=== PATIENT | male | born 1950 | race Caucasian/White ===

== ENCOUNTER 2023-02-27 10:18 | Oncology outpatient (recurring) (ONCR) | payer MEDICARE, OTHER, SELFPAY ==
--- NOTE | 2023-02-19 15:04 | N.ONRAD NP_ITS ---
Radiation Oncology Consultation Patient Name: Kaveh Krishna Date of : 1950 Date of Service: 02/19/2023 Attending Physician: Navarro Grewal M.D. Kaveh Krishna was seen in consultation this morning at the request of Jose Rivera M.D. for evaluation regarding cranial radiotherapy in the management of metastatic lung cancer. He was diagnosed in 2021 with a non-small cell lung cancer. 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 PET imaging ordered in September 2022 demonstrated a 3.2 cm mass in the right upper-lobe (SUV 14.4) and bilateral hilar lymphadenopathy (SUV 6.2). A biopsy was consistent with recurrent squamous cell carcinoma. He was evaluated at the [facility]'s Emergency Department on January 28, [address] of the head reported decreased attenuation in the left frontal lobe. An MRI of the brain (independently reviewed in [facility]) requested on February 14, 2023 identified a 1.1 cm enhancing lesion in the postero-superior left frontal lobe with surrounding vasogenic edema. The patient was referred for cranial radiotherapy. I reviewed the National [employer] Cancer [employer] Guidelines for patients with limited brain metastases recommending consideration for surgical intervention, stereotactic radiosurgery, hippocampal avoidance whole brain radiotherapy, or whole brain radiotherapy. In consideration of the adverse effects of whole brain radiotherapy, I would recommend SRS. The potential toxicities of SRS were canvassed. The patient has verbalized understanding and would like to proceed as recommended. Signed by: Navarro Grewal 02/19/2023 3:03:58 PM
--- NOTE | 2023-02-25 | CT_ITS ---
Radiation Therapy Planning CT images; total exam DLP: 1396.39 mGy-cm MTDD
--- NOTE | 2023-02-27 11:14 | N.ONRD TS_ITS ---
Radiation OncologyTreatment Summary Patient Name: Kaveh Krishna Date of : 1950 Date of Service: 02/27/2023 Attending Physician: Navarro Grewal M.D. 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 He was diagnosed in 2021 with a non-small cell lung cancer. 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 PET imaging ordered in September 2022 demonstrated a 3.2 cm mass in the right upper-lobe (SUV 14.4) and bilateral hilar lymphadenopathy (SUV 6.2). A biopsy was consistent with recurrent squamous cell carcinoma. He was evaluated at the [facility]'s Emergency Department on January 28, [address] of the head reported decreased attenuation in the left frontal lobe. An MRI of the brain requested on February 14, 2023 identified a 1.1 cm enhancing lesion in the postero-superior left frontal lobe with surrounding vasogenic edema. SRS was performed on February 27, 2023. A prescribed dose of 24 Gy was delivered to the left postero-superior frontal lobe lesion in one fraction. The lesion was treated utilizing and intensity modulated radiotherapy plan with a step and shoot treatment technique. The plan required five coplanar webber and three non-coplanar ports. The coplanar webber were designed with gantry angles of 60???, 80???, 100???, 120??? 140??? and a collimator rotation of 0???. The minimum field size was 3.5 cm x 3 cm to a maximum of 4.6 cm x 3 cm. The planned SSD measured between 95.7 cm to 97.4 cm. The delivered monitor units for the referenced gantry angles were 707 MU, 643 MU, 609 MU, 633 MU, and 233 MU. An additional three non-coplanar ports were arranged with gantry angles of 50???, 90??? and 130???, respectively with a collimator rotation of 0???. The non-coplanar portal webber measured a minimum of 4 cm x 3 cm to a maximum of 4.8 cm x 3 cm. The SSD measurements were 96.8 cm to 97.5 cm. The non-coplanar ports administered 708 MU, 810 MU, and 558 MU, respectively. All treatments were performed with the [employer] linear accelerator and an isocentric technique. The dose was calculated by Anisotropic Analytic Algorithm. Low energy photons were prescribed with the plan normalized to deliver 100% of the prescription dose to 95% of the planning target volume. Signed by: Navarro Grewla 02/27/2023 11:13:46 AM
--- NOTE | 2023-02-27 11:25 | ONCRAD TMN_ITS ---
SRS Treatment Management Note Patient Name: Kaveh Krishna Date of : 1950 Date of Service: 02/27/2023 Attending Physician: Navarro Grewal M.D. Kaveh Krishna is a 72 year-old white male recently identified to have a solitary brain metastasis. He was diagnosed in 2021 with a non-small cell lung cancer. 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 PET imaging ordered in September 2022 demonstrated a 3.2 cm mass in the right upper-lobe (SUV 14.4) and bilateral hilar lymphadenopathy (SUV 6.2). A biopsy was consistent with recurrent squamous cell carcinoma. He was evaluated at the [facility]'s Emergency Department on January 28, [address] of the head reported decreased attenuation in the left frontal lobe. An MRI of the brain requested on February 14, 2023 identified a 1.1 cm enhancing lesion in the postero-superior left frontal lobe with surrounding vasogenic edema. The patient has received 24 Gy of a prescribed 24 Love with an intensity modulated radiotherapy plan delivered utilizing stereotactic radiosurgery to the left frontal lobe metastasis. Upon review of systems, he did not report new neurological complaints. On physical examination, the patient weighed 193 lbs. His temperature was 96.7 ???F and the blood pressure was 140/85 mmHg. His pulse was 66 bpm and the respiratory rate was 18. SRS was completed today. He will return for routine post-SRS follow-up as scheduled. Signed by: Navarro Grewal 02/27/2023 11:24:23 AM
== END 2023-02-27 23:59 | disposition home or self-care (01) ==
PROVIDERS: Visit Provider Radiology Radiation Oncology
DX: Z51.0 Encounter for antineoplastic radiation therapy (principal); C34.12 Malignant neoplasm of upper lobe, left bronchus or lung; Z90.2 Acquired absence of lung [part of]; C78.01 Secondary malignant neoplasm of right lung; C77.8 Secondary and unspecified malignant neoplasm of lymph nodes of multiple regions; C79.31 Secondary malignant neoplasm of brain
CPT/HCPCS: 77300; 77301; 77334; 77336; 77338; 77372; 77470; 99024; 99205

== ENCOUNTER 2023-04-05 09:11 | Oncology outpatient (recurring) (ONCR) | payer MEDICARE, OTHER, SELFPAY ==
--- NOTE | 2023-04-05 09:32 | ONCRAD EPV_ITS ---
Radiation Oncology Follow-Up Note Patient Name: Kaveh Krishna Date of : 1950 Date of Service: 04/05/2023 Attending Physician: Navarro Grewal M.D. Kaveh Krishna returned to my office this morning for a routinely scheduled follow-up appointment. He completed stereotactic radiosurgery in February for the management of metastatic lung cancer. He was diagnosed in 2021 with a non-small cell lung cancer. 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 PET imaging ordered in September 2022 demonstrated a 3.2 cm mass in the right upper-lobe (SUV 14.4) and bilateral hilar lymphadenopathy (SUV 6.2). A biopsy was consistent with recurrent squamous cell carcinoma. He was evaluated at the [facility]'s Emergency Department on January 28, [address] of the head reported decreased attenuation in the left frontal lobe. An MRI of the brain requested on February 14, 2023 identified a 1.1 cm enhancing lesion in the postero-superior left frontal lobe with surrounding vasogenic edema. SRS was performed on February 27, 2023. A prescribed dose of 24 Gy was delivered to the left postero-superior frontal lobe lesion in one fraction. On review of systems,. On physical examination, the patient weighed 192 pounds. The temperature was 98.2???F and his blood pressure was 119/63 mmHg. The pulse was 87 bpm and his respiratory rate was 18 breaths per minute. Neurological exam did not reveal any focal abnormalities. In summary, the Mr. Krishna returned for a routine post-SRS follow-up. He has been prescribed salvage chemotherapy and will continue follow-up with his medical oncologist in [place], [place]. Signed by: Dr. Navarro Grewal 04/05/2023 9:31:04 AM
== END 2023-04-12 23:59 | disposition home or self-care (01) ==
LOC: ONCMED 09:12
PROVIDERS: PCP Nurse Practitioner Family; Visit Provider Radiology Radiation Oncology
DX: C34.12 Malignant neoplasm of upper lobe, left bronchus or lung (principal); Z90.2 Acquired absence of lung [part of]; C77.8 Secondary and unspecified malignant neoplasm of lymph nodes of multiple regions; C79.31 Secondary malignant neoplasm of brain; Z92.3 Personal history of irradiation
CPT/HCPCS: 99024